=== PATIENT | female | born 1995 | race Hispanic/Latino ===

== ENCOUNTER → 2016-05-01 | Outpatient (CLI) | payer OTHER ==
[2016-05-01 13:08] LABS: BASO % 0.2 % (0.0-1.0); EOS % 0.4 % (0.0-3.0); LARGE UNSTAINED CELL # 0.1 K/mm3 (0.0-0.4); LYMPH # 1.2 K/mm3 (1.5-6.5); LYMPH % 16.9 % (24.0-44.0); MEAN CORPUSCULAR HEMOGLOBIN 30.2 pg (27.0-33.0); MEAN CORPUSCULAR HGB CONC 33.1 g/dl (32.0-36.5); MEAN CORPUSCULAR VOLUME 91.4 fl (80.0-96.0); MONO # 0.3 K/mm3 (0.0-0.8); NEUTROPHILS # 5.2 K/mm3 (1.8-7.7); NEUTROPHILS % 77.5 % (36.0-66.0); PLATELET COUNT, AUTOMATED 256 k/mm3 (150-450); RED CELL DISTRIBUTION WIDTH 13.3 % (11.5-14.5); WHITE BLOOD COUNT 6.8 K/mm3 (4.0-10.0)
== END ==
LOC: M SMT 08:53
PROVIDERS: ATTEND Advanced Practice Midwife
DX: Z34.82 Encounter for supervision of other normal pregnancy, second trimester (principal)

== ENCOUNTER → 2016-06-30 | Outpatient (REF) | payer OTHER | LOC: M LAB REF 12:56 | PROVIDERS: ATTEND Advanced Practice Midwife | DX: Z34.83 Encounter for supervision of other normal pregnancy, third trimester (principal) ==

== ENCOUNTER 2016-07-30 03:26 | Inpatient (IN) | payer OTHER ==
[~2016-07-30] VITALS: Ht 167.6 cm; Wt 85.0 kg
[2016-07-30] VITALS (39 sets, daily range): BP systolic 112–143; BP diastolic 53–87
[2016-07-30] MEDS ORDERED: FLINCHW9 PO (03:47)
[2016-07-30] MEDS ORDERED: AMPICILLIN 2 GM VIAL As Ordered ONE (04:09)
[2016-07-30 04:58] LABS: MEAN CORPUSCULAR HGB CONC 32.1 g/dl (32.0-36.5); MEAN CORPUSCULAR VOLUME 84.1 fl (80.0-96.0); RED CELL DISTRIBUTION WIDTH 14.9 % (11.5-14.5); WHITE BLOOD COUNT 9.4 K/mm3 (4.0-10.0)
[2016-07-30] MEDS ORDERED: FENTANYL 2MCG/ML ROPIVACAINE 0.2% IN 0.9% NACL 200ML IVBAG As Ordered ONE (05:37)
[2016-07-30] MEDS ORDERED: AMPICILLIN SOD 2 GM in D5W MINI-BAG PLUS 100 ML IV STA (05:46)
[2016-07-30] MEDS ORDERED: LACTATED RINGER'S 1000 ML IV STA (05:46)
[2016-07-30] MEDS ORDERED: LR 1,000 ML IV SCH (05:46)
[2016-07-30] MEDS ORDERED: EPIDURAL COMMENT XX SCH (06:30)
[2016-07-30] MEDS ORDERED: NALOXONE INJ 0.4 MG/1 ML VIAL (J2310) IV PRN (06:30)
[2016-07-30] MEDS ORDERED: REFRIGERATOR IV KEYS XX PRN (06:30)
[2016-07-30] MEDS ORDERED: FENTANYL/ROPIVACAINE/NACL BAG 200 ML EPIDURAL SCH (06:30)
[2016-07-30] MEDS ORDERED: EPIDURAL/PCA KEYS XX PRN (06:30)
[2016-07-30] MEDS ORDERED: ePHEDrine SULFATE 25 MG/5 ML(5MG/ML) SYRINGE IV PRN (06:30)
[2016-07-30] MEDS ORDERED: diphenhydrAMINE INJ 50MG/ML VIAL (J1200) IV PRN (06:30)
[2016-07-30] MEDS ORDERED: ONDANSETRON 4MG/2ML VIAL (J2405) IV PRN ×2 (06:30→12:15)
--- NOTE | 2016-07-30 06:43 | HPE ---
DATE OF ADMISSION: 07/30/2016 REASON FOR ADMISSION: Active labor. HISTORY OF PRESENT ILLNESS: This patient is a 21-year-old 1 who presents at 40 weeks 6 days estimated gestational age (EGA) by her last menstrual period (LMP) confirmed by first trimester ultrasound with complaints of contractions. She reports contractions started earlier this morning that have increased in intensity and frequency. She denies any vaginal bleeding, leakage of fluid, or decreased movements. Her course has been unremarkable. She initiated in her first trimester at [facility] and transferred to our practice at 16 weeks and has been appropriate throughout. PAST MEDICAL HISTORY: She has a history of anxiety. PAST SURGICAL HISTORY: She has had a breast biopsy. PAST OBSTETRICAL HISTORY: She is a 1, para 0. MEDICATIONS: Includes vitamins. ALLERGIES: She has no known drug allergies. SOCIAL HISTORY: Denies any alcohol, tobacco or drug use during her . PHYSICAL EXAMINATION: Her vital signs are stable. She is afebrile. She has a category 1 heart rate tracing with regular pattern of contractions on tocometer. GENERAL APPEARANCE: Well appearing in no acute distress. LUNGS: Clear to auscultation bilaterally. CARDIOVASCULAR: Heart regular rate and rhythm. ABDOMEN: Gravid, nontender. CERVICAL EXAM: She was 5 cm dilated, 90% effaced, -2 station. LABORATORIES: Blood type is O positive. Antibody screen is negative. Rubella is equivocal. Hepatitis surface antigen is negative. HIV is negative. Hepatitis C is nonreactive. Chlamydia and gonorrhea screens were negative. She had a normal 1 hour Glucola. She is Group B Streptococcus (GBS) positive. ASSESSMENT: 1. Mrs. Camargo is a 21-year-old 1 at 40 weeks 6 days estimated gestational age in active labor. 2. Reassuring status. 3. GBS positive. PLAN: 1. Admit to labor and delivery. CBC, RPR, type and screen. 2. Antibiotics for GBS positive. 3. Patient is a good candidate for an epidural.
[2016-07-30] MEDS ORDERED: AMPICILLIN SOD 1 GM in D5W MINI-BAG PLUS 50 ML IV SCH (08:00)
[2016-07-30] MEDS ORDERED: ACETAMINOPHEN TAB 650MG DOSE (2X325MG) PO ONE (10:00)
[2016-07-30] MEDS ORDERED: OXYTOCIN 30 UNITS IN 0.9% NaCl 500ML IV BAG (J2590) As Ordered ONE (10:25)
[2016-07-30] MEDS ORDERED: METHYLERGONOVINE MALEATE 0.2 MG TAB PO PRN (12:15)
[2016-07-30] MEDS ORDERED: ACETAMINOPHEN 500 MG TAB PO PRN (12:15)
[2016-07-30] MEDS ORDERED: DIBUCAINE 1% OINTMENT 30GM TOP PRN (12:15)
[2016-07-30] MEDS ORDERED: RHOGAM 300 MCG (1500 IU) INJ (J2790) IM SCH (12:15)
[2016-07-30] MEDS ORDERED: MEASLES,MUMPS,RUBELLA VACCINE INJ (MMR-II) (90707) SC SCH (12:15)
[2016-07-30] MEDS ORDERED: OXYTOCIN DRIP 30 UNITS in APPROPRIATE DILUENT 1 EA IV ONE (12:15)
[2016-07-30] MEDS ORDERED: DOCUSATE SODIUM 100 MG CAP PO PRN (12:15)
[2016-07-30] MEDS: IBUPROFEN 800 MG TAB PO PRN (16:06)
--- NOTE | 2016-07-30 20:24 | DN ---
DATE: 07/30/2016. PREDELIVERY DIAGNOSIS: Term , in labor. POSTDELIVERY DIAGNOSIS: Delivered. PROCEDURE: Vacuum-assisted vaginal delivery. SPECIAL EDUCATION PROFESSIONAL; Dr. Jordy Faust ANESTHESIA: Epidural. ESTIMATED BLOOD LOSS: 300 mL. FINDINGS: 8 pound 11 ounce male with scores 8 and 9. DELIVERY SUMMARY: After 90-minute second phase, the patient was diagnosed with arrest of descent at +3 station. Kiwi vacuum was applied to the occiput without difficulty. With a single controlled traction along with maternal effort, delivery was accomplished. There was no nuchal cord. The shoulders delivered with ease. The infant cried spontaneously and was handed to the mother. The cord was doubly clamped and cut. Placenta delivered spontaneously and appeared to be intact. The patient received intravenous (IV) Pitocin immediately after delivery of the placenta. First-degree right anterior labial laceration was repaired with 4-0 chromic in the usual fashion. A first-degree perineal laceration was repaired with 3-0 chromic in the usual fashion. Sponge, needle counts were correct.
[2016-07-31 05:48] VITALS: BP 131/63
[2016-07-31] MEDS: PRENATAL VITAMIN TAB PO SCH ×2 (08:12→09:00)
[2016-07-31 08:53] VITALS: BP 107/65
[2016-07-31 08:55] VITALS: BP 107/65
[2016-07-31] MEDS: IBUPROFEN 800 MG TAB PO PRN (12:48)
[2016-07-31 18:00] VITALS: BP 113/68
[2016-08-01 06:50] VITALS: BP 105/62
[2016-08-01] MEDS: PRENATAL VITAMIN TAB PO SCH ×2 (08:00→08:45)
[2016-08-01] MEDS: IBUPROFEN 800 MG TAB PO PRN (11:12)
[2016-08-01] MEDS ORDERED: ACET50TA PO (12:38)
[2016-08-01] MEDS ORDERED: IBUP-1114 PO (12:44)
== END 2016-08-01 13:40 | disposition home or self-care (01) | DRG 775 ==
LOC: M LDO 03:26 → M LDI 04:52 → M OBS 13:47
PROVIDERS: ADMIT Obstetrics & Gynecology; ATTEND Obstetrics & Gynecology
PROC: 10D07Z6 Extraction of Products of Conception, Vacuum, Via Natural or Artificial Opening (ICD-10-PCS; principal; 2016-07-30)
PROC: 0HQ9XZZ Repair Perineum Skin, External Approach (ICD-10-PCS; 2016-07-30)
DX: O32.4XX0 Maternal care for high head at term, not applicable or unspecified (principal); Z37.0 Single live birth; Z3A.40 40 weeks gestation of pregnancy; O99.820 Streptococcus B carrier state complicating pregnancy; O48.0 Post-term pregnancy; O70.0 First degree perineal laceration during delivery